=== PATIENT | female | born 1935 | race Caucasian/White ===

== ENCOUNTER 2016-12-09 11:09 | Emergency (ER) | payer MEDICARE, OTHER ==
--- NOTE | 2016-12-09 11:46 | ER Document Report ---
ED Medical Screen (RME) - General Chief Complaint: Weakness Stated Complaint: WEAKNESS Time Seen by Provider: 12/09/16 11:40 Information source: Patient TRAVEL OUTSIDE OF THE [place] IN LAST 30 DAYS: No - HPI Patient complains to provider of: Generalized weakness, muscle aches, tingling sensation to distal extremity Onset: This morning Onset/Duration: Sudden Quality of pain: Achy Severity: Mild Notes: 12/09/16 11:46 Patient is a 81-year-old female who presents to the emergency room complaining of generalized weakness with tingling sensation to all of her distal extremities , symptoms started upon awakening this morning, she does report having a radiofrequency neurotomy procedure on Monday - Related Data Allergies/Adverse Reactions: Sulfa (Sulfonamide Antibiotics) Allergy (Verified 12/09/16 11:18) Past Medical History Renal/ Medical History: Denies: Hx Peritoneal Dialysis Physical Exam - Vital signs Vitals: Temp Pulse Resp BP Pulse Ox 98.1 F 55 L 20 124/64 96 12/09/16 11:15 12/09/16 11:15 12/09/16 11:15 12/09/16 11:15 12/09/16 11:15 Course - Vital Signs Vital signs: Temp Pulse Resp BP Pulse Ox 98.1 F 55 L 20 124/64 96 12/09/16 11:15 12/09/16 11:15 12/09/16 11:15 12/09/16 11:15 12/09/16 11:15
[2016-12-09 12:20] LABS: ABSOLUTE EOSINOPHILS # (AUTO) 0.2 10^3/uL (0.0-0.6); ABSOLUTE LYMPHOCYTES (AUTO) 1.2 10^3/uL (0.5-4.7); ABSOLUTE MONOCYTES (AUTO) 0.3 10^3/uL (0.1-1.4); ABSOLUTE NEUT (AUTO) 2.7 10^3/uL (1.7-8.2); BASOPHILS % (AUTO) 0.7 % (0-2); EOSINOPHILS % (AUTO) 4.1 % (0-6); HEMATOCRIT 40.4 % (36.0-47.0); HGB HCT DIFFERENCE -1.4; LYMPHOCYTES % (AUTO) 26.9 % (13-45); MEAN CORPUSCULAR HEMOGLOBIN 29.6 pg (27.0-33.4); MEAN CORPUSCULAR HGB CONC 32.1 g/dL (32.0-36.0); MEAN CORPUSCULAR VOLUME 93 fl (80-97); MONOCYTES % (AUTO) 7.5 % (3-13); RED BLOOD COUNT 4.37 10^6/uL (3.72-5.28); RED CELL DISTRIBUTION WIDTH 14.7 % (11.5-14.0); SEGMENTED NEUTROPHILS % (AUTO) 60.8 % (42-78); WHITE BLOOD COUNT 4.5 10^3/uL (4.0-10.5)
[2016-12-09 12:28] LABS: APPEARANCE,URINE CLOUDY; BILIRUBIN,URINE NEGATIVE (NEGATIVE); GLUCOSE, URINE NEGATIVE (NEGATIVE); KETONES,URINE TRACE mg/dL (NEGATIVE); LEUKOCYTE ESTERASE,URINE TRACE (NEGATIVE); NITRITE,URINE NEGATIVE (NEGATIVE); PROTEIN,URINE 30 mg/dL (NEGATIVE); URINE SPECIFIC GRAVITY 1.034; UROBILINOGEN,URINE NEGATIVE mg/dL (<2.0)
[2016-12-09] MEDS ORDERED: NORMAL SALINE 500 ML IV ONE (12:33)
--- NOTE | 2016-12-09 12:34 | ER Document Report ---
ED Dizziness/Weakness - General Mode of Arrival: Wheelchair Information source: Patient TRAVEL OUTSIDE OF THE [place] IN LAST 30 DAYS: No - HPI Patient complains to provider of: Weakness Associated symptoms: Other - See above <DERECK HA - Last Filed: 12/09/16 12:57> <MASSIMO HOWE - Last Filed: 12/09/16 19:29> - General Chief Complaint: Weakness Stated Complaint: WEAKNESS Time Seen by Provider: 12/09/16 11:40 Notes: Patient is a 81 year old female, with a past medical history including hypertension and hypercholesterolemia, who presents to the emergency department complaining of weakness onset this morning. Patient reports that she had tingling down her legs this morning that went away after she walked around for a while but she is still experiencing general weakness and feels tired. 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 Patient reports she has chronic back pain and recently received shots in her mid back on Monday. Patient denies difficulty urinating, cough, fever, and blood in stools. (DERECK HA) - Related Data Allergies/Adverse Reactions: Sulfa (Sulfonamide Antibiotics) Allergy (Verified 12/09/16 11:18) Past Medical History - General Information source: Patient - Social History Smoking Status: Unknown if Ever Smoked Family History: Reviewed & Not Pertinent Patient has suicidal ideation: No Patient has homicidal ideation: No - Past Medical History Cardiac Medical History: Reports: Hx Hypercholesterolemia, Hx Hypertension Past Surgical History: Reports: Hx Orthopedic Surgery <DERECK HA - Last Filed: 12/09/16 12:57> Review of Systems - Review of Systems Constitutional: See HPI, Weakness, Other - Tired. denies: Fever EENT: No symptoms reported Cardiovascular: No symptoms reported Respiratory: denies: Cough Gastrointestinal: denies: Blood streaked bowels Genitourinary: denies: Other - Difficulty Female Genitourinary: No symptoms reported Musculoskeletal: No symptoms reported Skin: No symptoms reported Hematologic/Lymphatic: No symptoms reported Neurological/Psychological: See HPI, Tingling -: Yes All other systems reviewed and negative <DERECK HA - Last Filed: 12/09/16 12:57> Physical Exam - Vital signs Interpretation: Normal - General General appearance: Appears well, Alert - HEENT Head: Normocephalic, Atraumatic Eyes: Normal Pupils: PERRL - Respiratory Respiratory status: No respiratory distress Chest status: Nontender Breath sounds: Normal Chest palpation: Normal - Cardiovascular Rhythm: Regular Heart sounds: Normal auscultation Murmur: No - Abdominal Inspection: Normal Distension: No distension Bowel sounds: Normal Tenderness: Nontender Organomegaly: No organomegaly - Back Back: Normal, Nontender - Extremities General upper extremity: Normal inspection, Nontender, Normal color, Normal ROM , Normal temperature General lower extremity: Normal inspection, Nontender, Normal color, Normal ROM , Normal temperature, Normal weight bearing. No: Pat's sign - Neurological Neuro grossly intact: Yes Cognition: Normal Orientation: AAOx4 [place] Coma Scale Eye Opening: Spontaneous Ana Coma Scale Verbal: Oriented [place] Coma Scale Motor: Obeys Commands [place] Coma Scale Total: 15 Speech: Normal Motor strength normal: LUE, RUE, LLE, RLE Sensory: Normal - Psychological Associated symptoms: Normal affect, Normal mood - Skin Skin Temperature: Warm Skin Moisture: Dry Skin Color: Normal <MASSIMO HOWE - Last Filed: 12/09/16 19:29> - Vital signs Vitals: Temp Pulse Resp BP Pulse Ox 98.1 F 55 L 20 124/64 96 12/09/16 11:15 12/09/16 11:15 12/09/16 11:15 12/09/16 11:15 12/09/16 11:15 Course - Laboratory Result Diagrams: 12/09/16 11:50 12/09/16 11:50 <DERECK HA - Last Filed: 12/09/16 12:57> - Laboratory Result Diagrams: 12/09/16 11:50 12/09/16 11:50 <MASSIMO HOWE - Last Filed: 12/09/16 19:29> - Re-evaluation Re-evalutation: 12/09/16 14:52 Patient is a 81-year-old female who comes in complaining of generalized weakness. Patient states that she has had decreased fluid intake the last few days. Patient received fluid bolus and is feeling much better. Ambulates without difficulty. No focal deficits. Patient denies any dysuria. Patient does have bacteria on urine. Culture will be sent but no evidence to treat this time. Patient feels well would like to go home. Stable for discharge. Follow-up with PMD and return if any worsening or concerning symptoms. Understands and agrees with plan. Grateful for care. (MASSIMO HOWE) - Vital Signs Vital signs: Temp Pulse Resp BP Pulse Ox 98.1 F 55 L 21 H 130/76 H 96 12/09/16 11:15 12/09/16 11:15 12/09/16 13:01 12/09/16 15:08 12/09/16 15:08 - Laboratory Laboratory results interpreted by me: 12/09/16 12/09/16 11:50 11:55 RDW 14.7 H Urine Protein 30 H Urine Ketones TRACE H Ur Leukocyte Esterase TRACE H Urine Ascorbic Acid 40 H Discharge <DERECK HA - Last Filed: 12/09/16 12:57> <MASSIMO HOWE - Last Filed: 12/09/16 19:29> - Discharge Clinical Impression: Weakness, Dehydration Condition: Stable Disposition: HOME, SELF-CARE Instructions: Weakness ([facility]), Dehydration ([facility]) Additional Instructions: Please follow-up with your doctor this week. Return if you have any worsening or concerning symptoms. Scribe Attestation: 12/09/16 19:29 I personally performed the services described in the documentation, reviewed and edited the documentation which was dictated to the scribe in my presence, and it accurately records my words and actions. (MASSIMO HOWE) Scribe Documentation - Scribe Written by Anali:: anali Leigh, 12/09/16, 3047 acting as scribe for :: Savita <DERECK HA - Last Filed: 12/09/16 12:57>
[2016-12-09 12:37] LABS: ALANINE AMINOTRANSFERASE 30 U/L (9-52); ALBUMIN 4.3 g/dL (3.5-5.0); ALKALINE PHOSPHATASE 74 U/L (38-126); ANION GAP 9 (5-19); ASPARTATE AMINO TRANSFERASE 28 U/L (14-36); BILIRUBIN,DIRECT 0.3 mg/dL (0.0-0.4); BILIRUBIN,TOTAL 0.6 mg/dL (0.2-1.3); BLOOD UREA NITROGEN 20 mg/dL (7-20); CALCIUM 9.2 mg/dL (8.4-10.2); CARBON DIOXIDE 27 mmol/L (22-30); CHLORIDE 105 mmol/L (98-107); CREATININE RESULT 0.87 mg/dL (0.52-1.25); GLUCOSE 95 mg/dL (75-110); POTASSIUM 4.5 mmol/L (3.6-5.0); SODIUM 141.4 mmol/L (137-145); TOTAL PROTEIN 7.1 g/dL (6.3-8.2)
--- NOTE | 2016-12-09 14:24 | RADIOLOGY REPORT (SQ) ---
EXAM DESCRIPTION: CHEST PA/LAT COMPLETED DATE/TIME: 12/09/2016 1:42 pm REASON FOR STUDY: weakness COMPARISON: None. NUMBER OF VIEWS: Two view. TECHNIQUE: Frontal and lateral radiographic views of the chest acquired. LIMITATIONS: None. FINDINGS: LUNGS AND PLEURA: No opacities, masses or pneumothorax. No pleural effusion. Attenuated bl ood vessels and flattened miryam-diaphragms. MEDIASTINUM AND HILAR STRUCTURES: No masses. No contour abnormalities. HEART AND VASCULAR STRUCTURES: Heart normal in size and contour. No evidence for failure. BONES: No acute findings. HARDWARE: Breast implants. Hardware in the right shoulder. OTHER: No other significant finding. IMPRESSION: COPD. NO ACUTE RADIOGRAPHIC FINDING IN THE CHEST. TECHNICAL DOCUMENTATION: JOB ID: [id number] [employer]- All Rights Reserved
[2016-12-09 15:12] VITALS: BP 130/76
--- NOTE | 2016-12-11 12:55 | EKG REPORT ---
SEVERITY:- NORMAL ECG - SINUS BRADYCARDIA : Confirmed by: Ana Rodriguez MD 11-Dec-2016 12:55:14
== END 2016-12-09 15:15 | disposition home or self-care (01) ==
LOC: ER 11:09
DX: R53.1 Weakness (principal); E86.0 Dehydration; R20.2 Paresthesia of skin; I10 Essential (primary) hypertension; E78.00 Pure hypercholesterolemia, unspecified; Z88.2 Allergy status to sulfonamides
CPT/HCPCS: 93005; 99285; 96360; 36415; 87086; 85025; 87088; 80053; 81001; 87186; 71020; 93010; J7040